=== PATIENT | female | born 1995 | race Caucasian/White ===

== ENCOUNTER 2017-03-07 18:44 | Emergency (ER) | payer MEDICAID ==
[~2017-03-07] VITALS: Ht 149.9 cm; Wt 68.0 kg
[2017-03-07 19:08] VITALS: BP 131/88
== END 2017-03-08 00:20 | disposition left against medical advice (07) ==
LOC: ER 18:44
DX: R10.13 Epigastric pain (principal); Z53.21 Procedure and treatment not carried out due to patient leaving prior to being seen by health care provider